=== PATIENT | male | born 1960 | race Caucasian/White ===

== ENCOUNTER → 2019-03-13 11:09 | Outpatient (BNVA) | payer MEDICARE, BC, SELFPAY | PROVIDERS: PCP Family Medicine; Visit Provider Specialist | DX: M54.2 Cervicalgia (principal); G24.3 Spasmodic torticollis | CPT/HCPCS: 99203; 99213 ==

== ENCOUNTER → 2019-04-12 14:59 | Outpatient (BNVA) | payer MEDICARE, BC, SELFPAY | PROVIDERS: PCP Family Medicine; Visit Provider Specialist | DX: G24.8 Other dystonia (principal); G24.3 Spasmodic torticollis | CPT/HCPCS: 64616; 99212; J0585 ==

== ENCOUNTER → 2019-07-12 14:18 | Outpatient (BNVA) | payer MEDICARE, BC, SELFPAY | PROVIDERS: PCP Family Medicine; Visit Provider Specialist | DX: G24.3 Spasmodic torticollis (principal) | CPT/HCPCS: 64616; 64642; J0585 ==

== ENCOUNTER → 2019-10-11 13:16 | Outpatient (BNVA) | payer MEDICARE, BC, SELFPAY | PROVIDERS: PCP Family Medicine; Visit Provider Specialist | DX: G24.8 Other dystonia (principal); G24.3 Spasmodic torticollis | CPT/HCPCS: 64616; J0585 ==

== ENCOUNTER → 2020-02-21 14:31 | Outpatient (BNVA) | payer MEDICARE, BC, SELFPAY | PROVIDERS: PCP Family Medicine; Visit Provider Specialist | DX: G24.3 Spasmodic torticollis (principal) | CPT/HCPCS: 64616; 99213; J0585 ==

== ENCOUNTER → 2020-05-15 14:19 | Outpatient (BNVA) | payer MEDICARE, BC, SELFPAY | PROVIDERS: PCP Family Medicine; Visit Provider Specialist | DX: G24.3 Spasmodic torticollis (principal) | CPT/HCPCS: 64616; J0585 ==